=== PATIENT | male | born 1950 | race Two or more races ===

== ENCOUNTER 2018-07-19 11:00 | Inpatient (IN) | payer OTHER ==
[~2018-07-19] VITALS: Ht 180.3 cm; Wt 85.3 kg
[2018-07-19] MEDS ORDERED: DICLOFENAC SOD100 GM TP (12:48)
[2018-07-28] MEDS ORDERED: GABAPENTIN800 MG PO (11:57)
[2018-07-28] MEDS ORDERED: DOCUSATE SODIU100 MG PO (11:57)
[2018-07-28] MEDS ORDERED: AMOX-CLAV 875-1 EACH PO (11:58)
[2018-07-28] MEDS ORDERED: PERCOCET 5-3251 EACH PO (11:59)
[2018-07-28] MEDS ORDERED: CLONAZEPAM1 MG PO (11:59)
== END 2018-07-28 17:29 | disposition home or self-care (01) | DRG 455 ==
LOC: PED 07-27 06:07 → O/R 07-27 06:07 → SURG 07-27 11:00 → PED 07-27 14:26
PROVIDERS: Orthopaedic Surgery Orthopaedic Surgery of the Spine
PROC: 0SG1071 Fusion of 2 or more Lumbar Vertebral Joints with Autologous Tissue Substitute, Posterior Approach, Posterior Column, Open Approach (ICD-10-PCS; 2018-07-27)
PROC: 0ST20ZZ Resection of Lumbar Vertebral Disc, Open Approach (ICD-10-PCS; 2018-07-27)
PROC: 0SG10AJ Fusion of 2 or more Lumbar Vertebral Joints with Interbody Fusion Device, Posterior Approach, Anterior Column, Open Approach (ICD-10-PCS; 2018-07-27)
PROC: 07DS3ZZ Extraction of Vertebral Bone Marrow, Percutaneous Approach (ICD-10-PCS; 2018-07-27)
PROC: 0SG10A0 Fusion of 2 or more Lumbar Vertebral Joints with Interbody Fusion Device, Anterior Approach, Anterior Column, Open Approach (ICD-10-PCS; principal; 2018-07-27 13:00)
DX: M48.061 Spinal stenosis, lumbar region without neurogenic claudication (principal); M47.26 Other spondylosis with radiculopathy, lumbar region; M51.36 Other intervertebral disc degeneration, lumbar region; I10 Essential (primary) hypertension

== ENCOUNTER 2021-10-31 07:15 | Inpatient (IN) | payer OTHER ==
[~2021-10-31] VITALS: Ht 180.3 cm; Wt 86.2 kg
[~2021-10-31 07:15] MED LIST: AMOX-CLAV 875-1 EACH PO; CLONAZEPAM1 MG PO; DICLOFENAC SOD100 GM TP; DOCUSATE SODIU100 MG PO; GABAPENTIN800 MG PO; PERCOCET 5-3251 EACH PO
[2021-10-31] MEDS ORDERED: ZIPSOR25 MG PO (08:35)
== END 2021-11-07 20:58 | DRG 470 ==
LOC: SURH 11-05 07:00 → O/R 11-05 15:08 → SURG 11-05 15:08
PROVIDERS: ADMIT Orthopaedic Surgery; ATTEND Orthopaedic Surgery
PROC: 0SR90JZ Replacement of Right Hip Joint with Synthetic Substitute, Open Approach (ICD-10-PCS; principal; 2021-11-05 07:00)
DX: M16.11 Unilateral primary osteoarthritis, right hip (principal); D62 Acute posthemorrhagic anemia; M85.661 Other cyst of bone, right lower leg; M51.36 Other intervertebral disc degeneration, lumbar region; I10 Essential (primary) hypertension; Z98.1 Arthrodesis status; C61 Malignant neoplasm of prostate

== ENCOUNTER 2022-05-21 07:40 | Inpatient (IN) | payer OTHER ==
[~2022-05-21] VITALS: Ht 180.3 cm; Wt 77.1 kg
[~2022-05-21 07:40] MED LIST changes: +ZIPSOR25 MG PO
[2022-05-21] MEDS ORDERED: INTEGRA PLUS C1 EACH PO (08:03)
[2022-05-21] MEDS ORDERED: ATORVASTATIN CA10 MG PO (08:03)
[2022-05-29] MEDS ORDERED: LISINOPRIL10 MG (11:15)
[2022-05-29] MEDS ORDERED: DICLOFENAC SOD100 MG (11:15)
[2022-05-29] MEDS ORDERED: SILDENAFIL CIT100 MG (11:15)
[2022-05-29] MEDS ORDERED: ATORVASTATIN CA20 MG (11:15)
[2022-05-30] MEDS ORDERED: GABAPENTIN100 MG PO (11:32)
[2022-05-30] MEDS ORDERED: NORFLEX100MG PO (11:32)
[2022-05-30] MEDS ORDERED: OXYC1TAB9 PO (11:33)
== END 2022-05-30 16:33 | disposition designated cancer center or children's hospital (05) | DRG 470 ==
LOC: SURH 05-27 06:47 → O/R 05-27 06:47 → SURG 05-27 08:00 → SURH 05-27 13:15
PROVIDERS: ADMIT Orthopaedic Surgery; ATTEND Orthopaedic Surgery
PROC: 0SRB0JZ Replacement of Left Hip Joint with Synthetic Substitute, Open Approach (ICD-10-PCS; principal; 2022-05-27 10:15)
DX: M16.12 Unilateral primary osteoarthritis, left hip (principal); D62 Acute posthemorrhagic anemia; M81.0 Age-related osteoporosis without current pathological fracture; Z96.642 Presence of left artificial hip joint; Z20.822 Contact with and (suspected) exposure to COVID-19